=== PATIENT | female | born 1995 | race Caucasian/White ===

== ENCOUNTER 2017-02-01 22:10 | Emergency (ER) | payer OTHER ==
[2017-02-01 22:53] LABS: microscopic required? NO
[2017-02-01 23:24] LABS: urine erythrocyte NEGATIVE (NEGATIVE)
[2017-02-02 00:54] VITALS: BP 100/65
== END 2017-02-02 00:54 | disposition home or self-care (01) ==
LOC: ED 22:10
PROVIDERS: Emergency Medicine
DX: B34.9 Viral infection, unspecified (principal)
CPT/HCPCS: 87804; J1885

== ENCOUNTER 2017-07-21 11:06 | Emergency (ER) | payer OTHER ==
[~2017-07-21] VITALS: Ht 160 cm; Wt 68.7 kg
[2017-07-21 11:13] VITALS: Ht 160 cm; Wt 68.7 kg
[2017-07-21 12:43] VITALS: BP 122/69
== END 2017-07-21 12:43 | disposition home or self-care (01) ==
LOC: ED 11:06
DX: J11.1 Influenza due to unidentified influenza virus with other respiratory manifestations (principal)